=== PATIENT | female | born 1925 | race Caucasian/White ===

== ENCOUNTER → 2016-07-28 | Outpatient (REF) ==
[~2016-07-28] MED LIST: ASPIRIN E.C. 8181 MG PO; BYSTOLIC20 MG PO; CLEOCIN HCL300 MG PO; COLACE 100100 MG/CAP PO; CORDARONE200 MG/TAB PO; COUMADIN 6MG6 MG/TAB PO; COUMADIN4 MG PO; ENSURE 237 ML237 ML; GLUCOSAMINE & C1 TAB PO; HCTZ 25MG TAB25 MG PO; MIRALAX PA17 GM/Dose PO; MULTI VITAMINS1 TAB PO; NORVASC 10MG10 MG PO; NORVASC 5MG5 MG/TAB PO; PRINIVIL20 MG PO; PRINIVIL5 MG PO; SENOKOT S 50 MG1 TAB PO; TOPROL XL 50MG50 MG PO; TYLENOL 325MG325 MG PO; VITAMIN D1000 IU PO; ZYRTEC 10MG10 MG PO
== END ==
LOC: ZLAB.WCH 11:15
DX: Z01.89 Encounter for other specified special examinations (principal)